=== PATIENT | male | born 1985 | race Asian ===

== ENCOUNTER 2021-12-13 12:31 | Emergency (ER) | payer OTHER ==
[~2021-12-13] VITALS: Ht 172.7 cm; Wt 68.0 kg
[2021-12-13 12:47] VITALS: BP_SYST 131
[2021-12-13] MEDS ORDERED: IBUP-1969 PO (13:34)
[2021-12-13 13:52] VITALS: BP_SYST 131
== END 2021-12-13 13:52 | disposition home or self-care (01) ==
LOC: SED 12:31
DX: S60.011A Contusion of right thumb without damage to nail, initial encounter (principal); W23.0XXA Caught, crushed, jammed, or pinched between moving objects, initial encounter; Y93.89 Activity, other specified; Y92.89 Other specified places as the place of occurrence of the external cause; Y99.8 Other external cause status
CPT/HCPCS: 73140-TC; 99284